=== PATIENT | male | born 1985 | race Caucasian/White ===

== ENCOUNTER 2016-04-13 10:01 | Emergency (ER) | payer OTHER ==
[~2016-04-13 10:01] MED LIST: FLEXERIL5 MG PO; MOTRIN600 MG PO; NOHOMEMEDS
[2016-04-13 10:45] LABS: AMYLASE 41 IU/L (1-118); CHLORIDE 107 mEq/L (99-109); POTASSIUM 4.6 mEq/L (3.7-5.4); SODIUM 141 mEq/L (136-147)
[2016-04-13 10:47] LABS: GLUCOSE 107 mg/dL (70-99)
[2016-04-13 10:49] LABS: ANION GAP 13 MEQ/L (2-14)
[2016-04-13 10:50] LABS: SERUM ETHYL ALCOHOL < 10 mg/dL
[2016-04-13 10:51] LABS: GFR ESTIMATE (CALCULATED) > 59 mL/min/
[2016-04-13 10:52] LABS: UREA NITROGEN (BUN) 14 mg/dL (9-23)
[2016-04-13 10:54] LABS: LIPASE 18 U/L (1.0-51.0)
[2016-04-13 11:33] LABS: EOSINOPHIL (%) 0.3 % (0-5); HEMATOCRIT 37.7 % (38.0-50.0); IMMATURE GRANULOCYTE (%) 0.2 % (0.0-0.7); IMMATURE GRANULOCYTE COUNT 0.3 K/uL; LYMPHOCYTE COUNT 1.4 K/uL (1.0-2.8); MCHC 34.5 G/DL (30.0-36.0); MCV 86.9 FL (86-99); MEAN PLAT.VOLUME 9.4 uM^3 (9.0-12.4); MONOCYTE (%) 5.9 % (3-12); MONOCYTE COUNT 0.8 K/uL (0-0.8); NEUTROPHIL (%) 83.4 % (45-76); NEUTROPHIL COUNT 11.7 K/uL (1.8-6.4); PLATELET COUNT 259 K/uL (156-360); RBC DIS.WIDTH-CV 12.5 % (11.8-14.6); RBC DIS.WIDTH-SD 38.7 % (39-53); RED BLOOD COUNT 4.34 M/uL (4.00-5.50)
== END 2016-04-13 13:18 | disposition short-term general hospital (02) ==
LOC: TRA 10:01
PROVIDERS: Emergency Medicine
PROC: 0HQ1XZZ Repair Face Skin, External Approach (ICD-10-PCS; principal; 2016-04-13)
DX: S02.609B Fracture of mandible, unspecified, initial encounter for open fracture (principal); S01.511A Laceration without foreign body of lip, initial encounter; S01.81XA Laceration without foreign body of other part of head, initial encounter; W29.3XXA Contact with powered garden and outdoor hand tools and machinery, initial encounter; Y99.0 Civilian activity done for income or pay
CPT/HCPCS: 70486; 70498; 80048; 81003; 82150; 83690; 85025; 86850; 86900; 86901; 99281; 99285; G0480; J0690; J1170

== ENCOUNTER 2016-04-15 12:23 | Emergency (ER) | payer OTHER ==
[~2016-04-15] VITALS: Ht 172.7 cm; Wt 90.9 kg
[2016-04-15 13:38] LABS: HEMATOCRIT 42.3 % (38.0-50.0); MCH 29.7 PG (29.0-34.0); MCHC 34.3 G/DL (30.0-36.0); MCV 86.7 FL (86-99); MEAN PLAT.VOLUME 9.4 uM^3 (9.0-12.4); PLATELET COUNT 312 K/uL (156-360); RBC DIS.WIDTH-CV 12.4 % (11.8-14.6); RBC DIS.WIDTH-SD 39.3 % (39-53); RED BLOOD COUNT 4.88 M/uL (4.00-5.50)
[2016-04-15 13:40] LABS: WHITE BLOOD COUNT 8.6 K/uL (4.1-10.2)
[2016-04-15 13:47] LABS: CHLORIDE 102 mEq/L (99-109); POTASSIUM 3.8 mEq/L (3.7-5.4); SODIUM 138 mEq/L (136-147)
[2016-04-15 13:49] LABS: GLUCOSE 92 mg/dL (70-99)
[2016-04-15 13:51] LABS: ANION GAP 11 MEQ/L (2-14)
[2016-04-15 13:53] LABS: GFR ESTIMATE (CALCULATED) > 59 mL/min/
[2016-04-15 13:54] LABS: UREA NITROGEN (BUN) 9 mg/dL (9-23)
[2016-04-15 16:40] VITALS: BP 115/70
== END 2016-04-15 16:43 | disposition home or self-care (01) ==
LOC: EXP 12:23 → EME 12:23 → EXP 16:43
PROVIDERS: Nurse Practitioner Family
DX: R51 Headache (principal); S01.81XD Laceration without foreign body of other part of head, subsequent encounter
CPT/HCPCS: 70450; 71020; 80048; 83605; 85027; 87040; 99281; 99285; J1200; J1885; J2270; J2405; J2765; J7030

== ENCOUNTER 2016-05-15 12:28 | Emergency (ER) | payer OTHER ==
[~2016-05-15] VITALS: Ht 172.7 cm; Wt 98.7 kg
[2016-05-15 13:52] LABS: TROP-I INTERPRETATION NEGATIVE; TROPONIN-I < 0.01 ng/mL (0.0-0.30)
[2016-05-15 15:05] VITALS: BP 120/76
== END 2016-05-15 15:46 | disposition home or self-care (01) ==
LOC: EME 12:28
PROVIDERS: Emergency Medicine
DX: J11.1 Influenza due to unidentified influenza virus with other respiratory manifestations (principal); R51 Headache; R07.9 Chest pain, unspecified
CPT/HCPCS: 71020; 84484; 93005; 99281; 99285; J1200; J1885; J2765; J7030